=== PATIENT | male | born 1985 | race Caucasian/White ===

== ENCOUNTER 2019-11-14 22:26 | Emergency (ER) | payer OTHER ==
[~2019-11-14] VITALS: Ht 172 cm; Wt 92.0 kg
--- NOTE | 2019-11-14 23:01 | ED EENT ---
History of Present Illness General Chief Complaint: Oral/Throat Problems Stated Complaint: VOMITING Source: patient Exam Limitations: no limitations History of Present Illness Date Seen by Provider: Nov 14, 2019 Time Seen by Provider: 22:45 Initial Comments The patient is a pleasant 34-year-old male presents for evaluation of in each she throat which leading to coughing and vomiting. He states that over the last few mornings when he woke up his throat was bothering him which led to cough slightly and vomiting. He states that he missed work and would like a work note. He is not having any nausea at this time and states that he feels fine and has no complaints other than a mild sore throat. He denies fevers or chills, chest pain or shortness of breath, abdominal or back pain, dizziness or syncope. He is alert and oriented 4, calm, and appears to be in no distress this time. Timing/Duration: other (last few days) Severity: mild Prearrival Treatment: no prearrival treatment Associated Symptoms: cough Allergies and Home Medications Patient Home Medication List Home Medication List Reviewed: Yes Review of Systems Review of Systems Constitutional: no symptoms reported Eyes: No Symptoms Reported Ears: No Symptoms Reported Nose: no symptoms reported Mouth: no symptoms reported Throat: other (throat soreness) Respiratory: cough (secondary to scratchy throat) Cardiovascular: no symptoms reported Gastrointestinal: no symptoms reported Musculoskeletal: no symptoms reported Skin: no symptoms reported Neurological: No Symptoms Reported Hematologic/Lymphatic: No Symptoms Reported Immunological/Allergic: no symptoms reported All Other Systems Reviewed Negative Unless Noted: Yes Past Uvtzclk-Gtiqly-Ggdylk Hx Past Med/Social Hx: Reviewed Nursing Past Med/Soc Hx Patient Social History Recent Foreign Travel: No Contact w/Someone Who Travel: No Physical Exam Height, Weight, BMI Height: '" Weight: lbs. oz. kg; BMI Method: General Appearance: WD/WN, no apparent distress Eyes: bilateral eye normal inspection, bilateral eye PERRL, bilateral eye EOMI Mouth/Throat: No pharynx swelling, No tonsillar swelling, No uvula swelling, No voice changes Neck: non-tender, full range of motion, supple, normal inspection Cardiovascular: regular rate, rhythm, no edema, no murmur Respiratory: lungs clear, normal breath sounds, no respiratory distress, no accessory muscle use Gastrointestinal: normal bowel sounds, non tender, soft Neurologic/Psychiatric: gamemaster II-XII nml as tested, no motor/sensory deficits, alert, normal mood/affect, oriented x 3 Skin: normal color, warm/dry Progress/Results/Core Measures Progress Progress Note : Progress Note @2300 - the patient's throat has some very mild erythema but no exudates or swelling and is unlikely in my opinion that he has strep pharyngitis. The patient agrees any has not had a fever. He likely has viral pharyngitis which is causing his throat to be irritated which is causing him to cough and vomit. He is not having any complaints at this time. Advised the patient to take the presc ribed medication and to return to the emergency Department immediately for difficulty breathing, new or worsening symptoms. He expresses verbal understanding and agreement with the plan and is stable for discharge. Departure Impression Primary Impression: Viral pharyngitis Disposition: HOME, SELF-CARE Condition: Stable Departure-Patient Inst. Decision time for Depature: 23:01 Referrals: SERVANDO ROCHE MD (PCP/Family) Primary Care Physician Patient Instructions: Viral Pharyngitis, Sore Throat, Adult (DC) Add. Discharge Instructions: Take the prescribed medicine instructed. Return to the emergency Department immediately for new or worsening symptoms. Follow-up with your doctor in the next 2-3 days. Scripts Prednisone (Prednisone) 20 Mg Tab 40 MG PO DAILY for 3 Days, #6 TAB 0 Refills Prov: LINDSEY GARRISON DO 11/14/19 Ondansetron (Ondansetron Odt) 4 Mg Tab.rapdis 4 MG PO Q4H PRN for NAUSEA-1ST LINE for 5 Days, #15 TAB Prov: LINDSEY GARRISON DO 11/14/19 LINDSEY GARRISON DO Nov 14, 2019 23:01
[2019-11-14] MEDS ORDERED: PRD20T PO (23:02)
[2019-11-14] MEDS ORDERED: ONDA4TAB11 PO (23:02)
[2019-11-14 23:13] VITALS: BP 171/78
--- OUTSIDE RECORDS SUMMARY | 2019-11-15 01:51 | XMS REPORT | Continuity of Care Document ---
Author Organization Unknown Address Unknown Phone Unavailable Allergies Active Description Code Type Severity Reaction Onset Reported/Identified Relationship to Patient Clinical Status Yes No Known Drug Allergies [id number] Drug Allergy Unknown N/A 11/14/2019 Medications There is no data. Problems There is no data. Procedures There is no data. Results There is no data. Encounters ACCT No. Visit Date/Time Discharge Status Pt. Type Provider Facility Loc./Unit Complaint [id number] 02/16/2019 10:50:00 02/16/2019 23:59: 59 C[facility] [id number] 08/14/2015 09:11:15 08/14/2015 09:1 1:15 DIS Outpatient [id number] 11/14/2019 22:27:00 020 23:11:00 DIS Emergency MELI PORTILLO DO [facility] ER FS VOMITING
--- OUTSIDE RECORDS SUMMARY | 2019-11-15 01:51 | XMS REPORT | Clinical Summary ---
Author Author [facility] Organization [facility] Address [address] [place] [address] Phone Care Team Providers Care Maintainability Engineer Name Role Phone MD MONTES CHARLES G PCP Conditions or Problems Problem Name Problem Code Onset Date Status Entry Date Provider Comment Standard Description Annotate ADJUSTMENT REACTION, ADOLESCENT [id number] (SNOMED CT) Active DANISH PEDRO RN Adjustment reaction of adoles cence STANDING [facility] FOR 6 [facility] [id number] (SNOMED CT) Active AIDE BRODERICK LPN Family history of asthma Medications No information available. Medications Administered No information available. Allergies, Adverse Reactions, Alerts Observed no known allergies at Results No information available. Plan of Care Type Date Detail Pending order Drug Screen, Urine Pending order Drug Screen, Urine Procedures Code Procedure Name Date Entry Date CPT-64900 Drug Screen, Urine CPT-94294 Drug Screen, Urine Vital Signs Date Name Value Unit Description Height 68.25 [in_us] height E&M Weight Measured 151.75 [lb_av] weight E&M
== END 2019-11-14 23:11 | disposition home or self-care (01) ==
LOC: ER FS 22:27
DX: J02.9 Acute pharyngitis, unspecified (principal)
CPT/HCPCS: 99282

== ENCOUNTER 2020-04-01 19:35 | Emergency (ER) | payer OTHER ==
[~2020-04-01] VITALS: Ht 172.7 cm; Wt 92.8 kg
[~2020-04-01 19:35] MED LIST: ONDA4TAB11 PO; PRD20T PO
[2020-04-01 19:50] VITALS: BP 159/87
--- NOTE | 2020-04-01 19:52 | ED GI ---
General Stated Complaint: NAUAEA/VOMITING Source of Information: Patient Exam Limitations: No Limitations History of Present Illness Date Seen by Provider: Apr 01, 2020 Time Seen by Provider: 19:37 Initial Comments the patient presents to the ER by private conveyance from home with chief complaint of every morning for the past month every morning when he wakes up he drinks coffee starts having a coughing fit and then feels very nauseated and occasionally vomits. He feels is getting worse. He used to follow with Dr. Ramirez but has not talked to him about this problem. He has no significant medical history. He only rarely drinks. He is having no pain fevers chills or nausea presently. Having normal stools. He has had no abdominal surgeries. Allergies and Home Medications Allergies Coded Allergies: No Known Drug Allergies (Unverified , 11/14/19) Home Medications Ondansetron 4 Mg Tab.rapdis, 4 MG PO Q4H PRN for NAUSEA-1ST LINE Prescribed by: LINDSEY GARRISON on 11/14/192301 Prednisone 20 Mg Tab, 40 MG PO DAILY Prescribed by: LINDSEY GARRISON on 11/14/192301 Patient Home Medication List Home Medication List Reviewed: Yes Review of Systems Review of Systems Constitutional: No chills, No diaphoresis EENTM: No Blurred Vision, No Double Vision Respiratory: See HPI; Denies Cough, Denies Shortness of Air Cardiovascular: Denies Chest Pain, Denies Edema Gastrointestinal: See HPI; Denies Abdominal Pain, Denies Constipated, Denies Diarrhea; Nausea, Vomiting Genitourinary: Denies Burning, Denies Discharge Musculoskeletal: No back pain, No joint pain All Other Systems Reviewed Negative Unless Noted: Yes Past Dheacfi-Hrzjme-Eoolze Hx Patient Social History Alcohol Use: Rarely Uses Alcohol Beverage of Choice: Beer Recreational Drug Use: No Smoking Status: Current Everyday Smoker Type Used: Cigarettes 2nd Hand Smoke Exposure: No Recent Foreign Travel: No Contact w/Someone Who Travel: No Recent Hopitalizations: No Past Medical History Surgeries: No Respiratory: No Cardiac: No Neurological: No Genitourinary: No Gastrointestinal: No Musculoskeletal: No Endocrine: No HEENT: No Cancer: No Psychosocial: No Integumentary: No Physical Exam Vital Signs Capillary Refill : Height/Weight/BMI Height: '" Weight: lbs. oz. kg; 31.00 BMI Method: General Appearance: WD/WN, no apparent distress HEENT: PERRL/EOMI Neck: full range of motion, normal inspection Respiratory: lungs clear, normal breath sounds, no respiratory distress, no accessory muscle use Cardiovascular: normal peripheral pulses, regular rate, rhythm Peripheral Pulses: 2+ Radial Pulses (R), 2+ Radial Pulses (L) Gastrointestinal: normal bowel sounds, non tender, soft Neurologic/Psychiatric: alert, oriented x 3 Skin: normal color, warm/dry Progress/Results/Core Measures Progress Progress Note : Time: 19:48 Progress Note A couple differential diagnoses would include gastritis/GERD, microaspiration causing the coughing fit related to reactive bronchial airway disease and/or less likely the gallbladder becoming inflamed. He says this does not happen with other meals only with coffee in the morning. He is not any acute distress at this time. He has a non-surgical abdomen. Aseptic vital signs. Plan to put him out on Carafate and omeprazole. She's not seeing improvement in the first week he can get an outpatient ultrasound of the right upper quadrant and follow-up with Dr. Ramirez. Departure Impression Primary Impression: Nausea Additional Impression: Cough Disposition: 01 HOME, SELF-CARE Condition: Stable Departure-Patient Inst. Decision time for Depature: 19:50 Referrals: SERVANDO RAMIREZ MD (PCP/Family) Primary Care Physician Patient Instructions: Nausea and Vomiting, Adult (DC) Add. Discharge Instructions: There are several things that might explain her symptoms. You might be having some acid reflux and inhaling little bits of the acid in your lungs causing the coughing fit which results in nausea. You might also be having difficulty with the lining of your stomach or your gallbladder itself. Initially I would control the production of acid by putting on omeprazole and protecting your stomach lining with Carafate for the next couple weeks. If this does not show improvement in the first week or so you can get an ultrasound of your gallbladder done and follow-up with your primary care, Dr. Ramirez. Carafate 1 tablet 4 times a day, with meals and at bedtime for 2 weeks. Omeprazole 40 mg daily for 4 weeks. Ondansetron one tablet under the tongue every 6 hours as necessary for nausea or vomiting. Scripts Ondansetron (Ondansetron Odt) 4 Mg Tab.rapdis 4 MG PO Q6H PRN for NAUSEA/VOMITING, #8 TAB 0 Refills Prov: AMEYA COLIN 04/01/20 Omeprazole (Omeprazole) 40 Mg Capsule.dr 40 MG PO DAILY for 30 Days, #30 CAP 0 Refills Prov: AMEYA COLIN 04/01/20 Sucralfate (Carafate) 1 Gm Tablet 1 GM PO QIDACHS for 14 Days, #56 TAB 0 Refills Prov: AMEYA COLIN 04/01/20 Work/School Note: Work Release Form Date Seen in the Emergency Department: Apr 01, 2020 Return to Work: Apr 02, 2020 Restrictions: No Restrictions Copy Copies To 1: SERVANDO RAMIREZ MD, TITUS J Apr 01, 2020 19:52
[2020-04-01] MEDS ORDERED: OMEP40CA27 PO (19:53)
[2020-04-01] MEDS ORDERED: SUCR1TAB36 PO (19:53)
[2020-04-01] MEDS ORDERED: ONDA4TAB11 PO (19:53)
== END 2020-04-01 19:58 | disposition home or self-care (01) ==
LOC: EDUNIT# 19:35 → ER FS 19:38
DX: R11.2 Nausea with vomiting, unspecified (principal); R05 Cough; F17.210 Nicotine dependence, cigarettes, uncomplicated; Z79.52 Long term (current) use of systemic steroids
CPT/HCPCS: 99282